=== PATIENT | male | born 1965 | race American Indian/Alaskan Native ===

== ENCOUNTER → 2016-12-21 | Emergency (ER) | payer SELFPAY ==
[~2016-12-21] VITALS: Ht 177.8 cm; Wt 75.0 kg
[~2016-12-21] MED LIST: HYDROCODONE/APAP (10/325) TAB PO ONE
[2016-12-21 19:23] VITALS: Ht 177.8 cm; Wt 75.0 kg
--- NOTE | 2016-12-21 21:30 | ERD ---
ER Documentation Chief Complaint Date/Time DATE: 12/21/16 TIME: 21:25 Chief Complaint fell from wheelchair x 2 hours ago, c/o left knee pain HPI 51-year-old male comes into the emergency department status post fall from wheelchair complaining of left-sided knee pain. Patient states he has hardware from previous surgery and trauma, he states that he was trying to get into an RV and he fell onto his left knee directly about an hour ago. Patient describes left anterior knee pain, rated 10 out of 10, he states that he usually takes Dilaudid because he does not get Demerol from hospitals anymore. ROS All systems reviewed and are negative except as per history of present illness. Allergies Allergies: Coded Allergies: No Known Drug Allergies (Verified Allergy, Unknown, 12/21/16) PMhx/Soc Medical and Surgical Hx: pt denies Medical Hx, pt denies Surgical Hx History of Surgery: No Anesthesia Reaction: No Hx Neurological Disorder: No Hx Respiratory Disorders: No Hx Cardiac Disorders: No Hx Psychiatric Problems: No Hx Miscellaneous Medical Probl: No Hx Alcohol Use: No Hx Substance Use: No Hx Tobacco Use: No Smoking Status: Never smoker Physical Exam Vitals Vital Signs Date Time Temp Pulse Resp B/P Pulse Ox O2 Delivery O2 Flow Rate FiO2 12/21/16 19:23 98.4 107 20 170/91 100 Physical Exam General: Patient is disheveled, no distress HEENT: Head is normocephalic, atraumatic. No scleral icterus. Neck: Supple. Nontender. Lungs: Clear to auscultation. Normal air movement. Heart: Regular rate and rhythm. S1 and S2 are normal. No murmurs, gallops, or rubs. Abdomen: Nondistended. Extremities: Scar on the lateral aspect of the left knee, patient has full range of motion, no bony deformities, erythema or laceration. Neurologic: Alert and oriented 3. No focal deficits. Normal speech and gait. Skin: Normal turgor. No rash or lesions. Results 24 hrs Current Medications Medications (Trade) Dose Ordered Sig/Chanel Route PRN Reason Start Time Stop Time Status Last Admin Dose Admin Acetaminophen/ Hydrocodone Bitart (Agar ([id number])) 1 tab ONCE ONCE PO 12/21/16 21:00 12/21/16 21:01 DC 12/21/16 20:39 Procedures/MDM ED course: He was advised that we will be able to give him p.o. medication for pain, he was given Agar. X-rays of the left knee were ordered however patient was called multiple times a bit radiology, and there was no answer. Staff member saw the patient leaving the emergency department. MDM: 51-year-old male comes in with left anterior knee pain, appears that he does have a history of chronic pain secondary to multiple surgeries. However his behavior today seems suspicious of possible drug-seeking behavior. His examination did not have any bony deformities or evidence of dislocation or any limb threatening process acutely. X-rays were ordered as precaution, however he eloped from the emergency department. Departure Diagnosis: Primary Impression: Drug-seeking behavior Additional Impression: Knee pain Condition: Good BERENICE LAURA PA-C December 21, 2016 21:30
== END | disposition left against medical advice (07) ==
LOC: FTE 19:10
DX: M25.562 Pain in left knee (principal); Z72.89 Other problems related to lifestyle
CPT/HCPCS: 99283